=== PATIENT | female | born 1975 | race Caucasian/White ===

== ENCOUNTER → 2018-08-17 | Outpatient (CLI) | payer OTHER ==
--- NOTE | 2018-08-19 08:51 | MM ---
Reason for exam: screening (asymptomatic). Baseline mammogram. History: Took hormonal contraceptives beginning at age 16. Physical Findings: Nurse did not find any significant physical abnormalities on exam. MG Screening Mammo w CAD Bilateral CC and MLO view(s) were taken. The breast tissue is heterogeneously dense. This may lower the sensitivity of mammography. There is no discrete abnormality. These results were verbally communicated with the patient and result sheet given to the patient on 08/27/18. ASSESSMENT: Negative, BI-RAD 1 RECOMMENDATION: Routine screening mammogram of both breasts in 1 year.
== END | disposition home or self-care (01) ==
LOC: RADMAMWWP 15:48
PROVIDERS: ATTEND Internal Medicine
DX: Z12.31 Encounter for screening mammogram for malignant neoplasm of breast (principal)
CPT/HCPCS: 77067

== ENCOUNTER → 2020-07-18 | Outpatient (CLI) | payer OTHER ==
--- NOTE | 2020-07-23 08:18 | MM ---
Reason for exam: screening (asymptomatic). Last mammogram was performed 1 year and 11 months ago. History: Took hormonal contraceptives beginning at age 16. Physical Findings: A clinical breast exam by your physician is recommended on an annual basis and results should be correlated with mammographic findings. MG Screening Mammo w CAD Bilateral CC and MLO view(s) were taken. Prior study comparison: August 17, 2018, bilateral MG screening mammo w CAD. The breast tissue is heterogeneously dense. This may lower the sensitivity of mammography. No significant changes when compared with prior studies. ASSESSMENT: Benign, BI-RAD 2 RECOMMENDATION: Routine screening mammogram of both breasts in 1 year.
== END | disposition home or self-care (01) ==
LOC: RADMAMWWP 13:38
PROVIDERS: ATTEND Nurse Practitioner Adult Health
DX: Z12.31 Encounter for screening mammogram for malignant neoplasm of breast (principal)
CPT/HCPCS: 77067

== ENCOUNTER → 2021-02-28 | Outpatient (CLI) | payer OTHER ==
--- NOTE | 2021-03-01 05:47 | MR ---
EXAMINATION TYPE: MR foot LT wo con DATE OF EXAM: 02/28/2021 COMPARISON: None HISTORY: Pain. Trauma second MP joint. The planar multiecho imaging of the left foot was performed without contrast. FINDINGS: On the T2 images there is abnormal increased signal in the soft tissues around the second MP joint an d the proximal phalanx of the second toe and the middle phalanx of the second toe. I see no definite focal bone destruction. I see no fracture line. The medial and flexor tendons of the foot appear inta ct. I see no discrete soft tissue mass. The metatarsals appear intact. IMPRESSION: There is diffuse soft tissue edema around the second toe and also extending to the third toe as above which is nonspecific and could relate to some synovitis. No fracture seen.
== END | disposition home or self-care (01) ==
LOC: RADMRIMAIN 07:49
PROVIDERS: ATTEND Podiatrist Foot & Ankle Surgery
DX: R60.9 Edema, unspecified (principal)

== ENCOUNTER → 2021-08-28 | Outpatient (CLI) | payer OTHER ==
--- NOTE | 2021-08-29 12:08 | MM ---
Reason for exam: screening (asymptomatic). Last mammogram was performed 1 year and 1 month ago. History: Took hormonal contraceptives for 7 years beginning at age 16. Physical Findings: A clinical breast exam by your physician is recommended on an annual basis and results should be correlated with mammographic findings. MG Screening Mammo w CAD Bilateral CC and MLO view(s) were taken. Prior study comparison: July 18, 2020, bilateral MG screening mammo w CAD. August 17, 2018, bilateral MG screening mammo w CAD. The breast tissue is extremely dense which could obscure a lesion on mammography. Focal asymmetry becoming more apparent. This finding is changed when compared with previous exams. ASSESSMENT: Incomplete: need additional imaging evaluation, BI-RAD 0 RECOMMENDATION: Special view mammogram of the right breast. If lesion persists on supplemental views, image directed ultrasound is recommended. [facility] will attempt to contact patient to return for supplemental views and ultrasound if indicated.
== END ==
LOC: RADMAMWWP 08:30
PROVIDERS: ATTEND Internal Medicine
DX: Z12.31 Encounter for screening mammogram for malignant neoplasm of breast (principal)
CPT/HCPCS: 77067

== ENCOUNTER → 2021-09-06 | Outpatient (CLI) | payer OTHER ==
--- NOTE | 2021-09-09 10:05 | MM ---
Reason for exam: additional evaluation requested from abnormal screening. Last mammogram was performed less than 1 month ago. History: Took hormonal contraceptives for 7 years beginning at age 16. Physical Findings: Nurse did not find any significant physical abnormalities on exam. MG 3D Work Up W/Cad RT Spot compression CC, spot compression MLO, and LM view(s) were taken of the right breast. Prior study comparison: August 28, 2021, bilateral MG screening mammo w CAD. July 18, 2020, bilateral MG screening mammo w CAD. Focal asymmetry 10mm middle depth outer aspect does not definitively persist on additional view. Benign dense tissue. These results were verbally communicated with the patient and result sheet given to the patient on 09/06/21. ASSESSMENT: Incomplete: need additional imaging evaluation, BI-RAD 0 RECOMMENDATION: Ultrasound of the right breast.
--- NOTE | 2021-09-09 10:10 | USB ---
Reason for exam: additional evaluation requested from abnormal screening. History: Took hormonal contraceptives for 7 years beginning at age 16. US Breast Workup Limited RT Technologist: Rosalva Torres Right limited breast ultrasound including focal area of concern, retroareolar and axilla demonstrates a 1.0 x 0.9 x 0.6cm oval, avascular lesion at 8 o'clock, hyperechoic to anechoic, probable slight debris filled cyst. These results were verbally communicated with the patient and result sheet given to the patient on 09/06/21. ASSESSMENT: Probably benign, BI-RAD 3 RECOMMENDATION: Follow-up diagnostic mammogram and ultrasound of the right breast in 6 months.
== END | disposition home or self-care (01) ==
LOC: RADMAMWWP 14:46
PROVIDERS: ATTEND Internal Medicine
DX: R92.8 Other abnormal and inconclusive findings on diagnostic imaging of breast (principal)
CPT/HCPCS: 77065; 76642; G0279; 77061

== ENCOUNTER → 2022-03-21 | Outpatient (CLI) | payer OTHER ==
--- NOTE | 2022-03-21 14:49 | MM ---
Reason for Exam: Follow-up at short interval from prior study. Last screening mammogram was performed 7 month(s) ago. Patient History: Menarche at age 14. First Full-Term at age 28. Hormonal Contraceptives for 7 years from age 16 until age 23. Last menstrual period: 03/05/2022 Risk Values: Giselle 5 year model risk: 0.9%. NCI Lifetime model risk: 10.5%. Prior Study Comparison: 07/18/2020 Bilateral Screening Mammogram, [facility]. 08/28/2021 Bilateral Screening Mammogram, [facility]. 09/06/2021 Right Diagnostic Mammogram, [facility]. Tissue Density: Right: The breast tissue is extremely dense which could obscure a lesion on mammography. Findings: Analyzed By CAD. Mammogram No suspicious spiculated or lobular masses or calcifications, architectural distortion, or secondary signs of malignancy are radiographically apparent. Technique: Method: Targeted. Findings: The lower outer quadrant of the right breast, the axilla of the right breast and the retroareolar of the right breast were scanned. 800 cyst is not seen on today's examNo suspicious solid or cystic areas are evident. There is some variation of the dense parenchymal tissue. Overall Assessment: Probably benign, BI-RAD 3 Assessment: MG 3D diag mammo w/cad RT - Right: Benign, BI-RAD 2. US breast limited RT - Right: Probably benign, BI-RAD 3. Management: Diagnostic Mammogram of both breasts in 6 months. A clinical breast exam by your physician is recommended on an annual basis and results should be correlated with mammographic findings. Results were given to the patient verbally at the time of exam. Electronically signed and approved by: Sabino Beltran D.O. Radiologis
== END | disposition home or self-care (01) ==
LOC: RADMAMWWP 12:36
PROVIDERS: ATTEND Internal Medicine
DX: R92.8 Other abnormal and inconclusive findings on diagnostic imaging of breast (principal)
CPT/HCPCS: 77065; 76642; G0279; 77061

== ENCOUNTER → 2022-04-02 | Outpatient (CLI) | payer OTHER ==
--- NOTE | 2022-04-02 15:25 | US ---
EXAMINATION TYPE: US thyroid st tissue head/neck DATE OF EXAM: 04/02/2022 COMPARISON: NONE CLINICAL HISTORY: E03.8 SUBCLINICAL HYPOTHYROIDISM. Subclinical hypothyroidism per order. GLAND SIZE: Right Lobe: 4.0 x 1.7 x 1.2 cm Overall Parenchyma: heterogenous Left Lobe: 4.5 x 1.7 x 1.5 cm Overall Parenchyma: heterogeneous Isthmus Thickness: 0.20 cm NODULES RIGHT: # of nodules measured on right: 0 LEFT: # of nodules measured on left: 0 ISTHMUS: # of nodules measured in the isthmus: 0 Bilateral neck scanned, no evidence of lymphadenopathy. Unable to visualize parathyroid tissue at this time by ultrasound. IMPRESSION: Nonspecific glandular heterogeneity.
== END | disposition home or self-care (01) ==
LOC: RADUSWWP 15:02
PROVIDERS: ATTEND Internal Medicine
DX: E03.8 Other specified hypothyroidism (principal)
CPT/HCPCS: 76536

== ENCOUNTER → 2022-10-28 | Outpatient (CLI) | payer OTHER ==
--- NOTE | 2022-10-28 09:28 | MM ---
Reason for Exam: Additional evaluation requested from prior study. Last mammogram was performed 1 year(s) and 2 month(s) ago. Patient History: Menarche at age 14. First Full-Term at age 28. Patient has history of breast feeding. Hormonal Contraceptives for 7 years from age 16 until age 23. Risk Values: Giselle 5 year model risk: 0.9%. NCI Lifetime model risk: 10.5%. Prior Study Comparison: 08/17/2018 Bilateral Screening Mammogram, [facility]. 07/18/2020 Bilateral Screening Mammogram, [facility]. 08/28/2021 Bilateral Screening Mammogram, [facility]. 09/06/2021 Right Diagnostic Mammogram, [facility]. 03/21/2022 Right MG 3D diag mammo w/cad RT, [facility]. Tissue Density: The breast tissue is heterogeneously dense. This may lower the sensitivity of mammography. Findings: Analyzed By CAD. Asymmetric density medial right CC view at middle depth remains unchanged for one year 2 months. Additional area of nodular asymmetric density made more apparent on the 3-D images located laterally right CC view at middle depth is also unchanged for one year 2 months. An additional one-year follow-up can demonstrate at least 2 years of stability and a benign etiology. Additional areas of asymmetric density remain unchanged. No suspicious microcalcification or other discrete abnormality is seen. Overall Assessment: Probably benign, BI-RAD 3 Management: Diagnostic Mammogram of both breasts in 1 year. Total two-year follow-up right breast and annual exam of the left breast. Patient should continue monthly self breast exams. Results were given to the patient verbally at the time of exam. Electronically signed and approved by: Radha Naqvi M.D. Radiologist
[2022-10-28 14:53] LABS: Basophils # (A) 0.07 X 10*3/uL (0.00-0.10); Basophils % (A) 1.2 %; Eosinophils % (A) 1.7 %; HCT 41.4 % (37.2-46.3); HGB 13.4 g/dL (12.0-15.0); Immature Grans, Automated 0.7 %; Lymphocytes # (A) 1.32 X 10*3/uL (0.90-5.00); Lymphocytes % (A) 21.8 %; MCHC 32.4 g/dL (32.0-37.0); Mean Platelet Volume 10.7 fL (9.5-12.2); Monocytes # (A) 0.92 X 10*3/uL (0.20-1.00); Monocytes % (A) 15.2 %; NRBC Per 100 WBC 0 /100 WBCS (0.0-0.0); Neutrophils % (A) 59.4 %; Platelet Count 146 X 10*3/uL (140-440); RBC 4.06 X 10*6/uL (4.10-5.20); RDW 11.9 % (11.5-14.5); WBC 6.05 X 10*3/uL (4.50-10.00)
[2022-10-30 05:32] LABS: ALT 25 U/L (8-44); AST 26 U/L (13-35); African American GFR (CKD) 106.7 (60.0-200.0); Albumin 4.6 g/dL (3.8-4.9); Albumin/Globulin Ratio 1.76 (1.60-3.17); Alkaline Phosphatase 30 U/L (41-126); BUN/Creat Ratio 17.31 Ratio (12.00-20.00); Blood Urea Nitrogen 13.4 mg/dL (9.0-27.0); Calcium 9.3 mg/dL (8.7-10.3); Carbon Dioxide 21.9 mmol/L (20.0-27.5); Chloride 102 mmol/L (96-109); Chol/HDL Ratio 1.65 Ratio; Globulin 2.6 g/dL (1.6-3.3); Glucose 94 mg/dL (70-110); LDL Cholesterol,Calculated 62.6 mg/dL (0.0-131.0); Potassium 4.2 mmol/L (3.5-5.5); Sodium 135 mmol/L (135-145); Total Protein 7.2 g/dL (6.2-8.2); VLDL Calculation 9.42 mg/dL (5.00-40.00)
== END | disposition home or self-care (01) ==
LOC: RADMAMWWP 08:29
PROVIDERS: ATTEND Internal Medicine
DX: Z00.00 Encounter for general adult medical examination without abnormal findings (principal); R92.8 Other abnormal and inconclusive findings on diagnostic imaging of breast; E03.8 Other specified hypothyroidism
CPT/HCPCS: 84439; 80061; 80053; 84443; 85025; 82306; 77066; G0279; 77062

== ENCOUNTER → 2023-10-23 | Outpatient (CLI) | payer BC, OTHER ==
--- NOTE | 2023-10-24 18:09 | US ---
EXAMINATION TYPE: US thyroid st tissue head/neck DATE OF EXAM: 10/23/2023 COMPARISON: US CLINICAL INDICATION: Female, 48 years old with history of E03.9 HYPOTHYROIDISM, UNSPECIFIED; Hypothyr oid GLAND SIZE: Right Lobe: 4.3 x 1.4 x 1.9 cm Overall Parenchyma: heterogenous Left Lobe: 4.5 x 1.4 x 1.3 cm Overall Parenchyma: heterogenous Isthmus Thickness: 0.3 cm NODULES RIGHT: # of nodules measured on right: 0 LEFT: # of nodules measured on left: 0 ISTHMUS: # of nodules measured in the isthmus: 0 Bilateral neck scanned, no evidence of lymphadenopathy. Bilateral thyroid heterogeneous, hypervascula r, no definite nodules visualized. IMPRESSION: 1. No suspicious thyroid nodules.
== END | disposition home or self-care (01) ==
LOC: RADUSWWP 15:59
PROVIDERS: ATTEND Internal Medicine
DX: E03.9 Hypothyroidism, unspecified (principal)
CPT/HCPCS: 76536

== ENCOUNTER → 2023-10-30 | Outpatient (CLI) | payer BC, OTHER ==
--- NOTE | 2023-10-30 10:34 | MM ---
Reason for Exam: Follow-up at short interval from prior study. Last screening mammogram was performed 12 month(s) ago. Patient History: Menarche at age 14. First Full-Term at age 28. Patient has history of breast feeding. Hormonal Contraceptives for 7 years from age 16 until age 23. Last menstrual period: 10/16/2023 Risk Values: Giselle 5 year model risk: 1.0%. NCI Lifetime model risk: 10.3%. Tissue Density: The breast tissue is heterogeneously dense. This may lower the sensitivity of mammography. Findings: Analyzed By CAD. Medial asymmetric density remains unchanged for one year and does not persist on spot compression views. Findings compatible with superimposition shadow. Asymmetric density at the right axilla is less defined on 3-D images and is unchanged when compared to the 2020 exam. No significant change from prior exams. Overall Assessment: Benign, BI-RAD 2 Management: Screening Mammogram of both breasts in 1 year. . Results were given to the patient verbally at the time of exam. Patient should continue monthly self-breast exams. A clinical breast exam by your physician is recommended on an annual basis. This exam should not preclude additional follow-up of suspicious palpable abnormalities. Note on Giselle scores and lifetime risk: 1. A Giselle score greater than 3% is considered moderate risk. If this is the case, consider specialist referral to assess eligibility for a risk reducing agent. 2. If overall lifetime risk for the development of breast cancer is 20% or higher, the patient may qualify for future screening with alternating mammogram and breast MRI. Electronically signed and approved by: Radha Naqvi M.D. Radiologist
== END | disposition home or self-care (01) ==
LOC: RADMAMWWP 09:31
PROVIDERS: ATTEND Internal Medicine
DX: R92.333 Mammographic heterogeneous density, bilateral breasts (principal)
CPT/HCPCS: 77062; 77066

== ENCOUNTER → 2024-01-01 | Outpatient (CLI) | payer OTHER ==
--- NOTE | 2024-01-02 19:35 | XR ---
EXAMINATION TYPE: XR elbow complete LT DATE OF EXAM: 01/01/2024 1:38 PM CLINICAL INDICATION:Female, 48 years old with history of M25.522 LT ELBOW PAIN; [facility] COMPARISON: None TECHNIQUE: XR elbow complete LT; elbow was examined in AP, lateral, and oblique projections. FINDINGS: No evidence of any acute osseous pathology, joint dislocation, or soft tissue swelling is n oted. No evidence of joint effusion is present. IMPRESSION: No evidence of acute fracture.
== END | disposition home or self-care (01) ==
LOC: LABWHC1 13:25
PROVIDERS: ATTEND Internal Medicine
DX: M25.522 Pain in left elbow (principal)